=== PATIENT | male | born 1960 | race Caucasian/White ===

== ENCOUNTER 2020-01-18 08:52 | Emergency (ER) | payer OTHER, SELFPAY ==
[2020-01-18 08:53] VITALS: BP 210/109; PULSE 84; RESP 18; TEMP 36.9; O2SAT 98; BMI 31.1
[2020-01-18 08:58] VITALS: BMI 31.1
[2020-01-18 09:01] VITALS: BP 180/114; PULSE 80; RESP 13; O2SAT 98
--- NOTE | 2020-01-18 09:18 | CT_ITS ---
STUDY: CTA HEAD AND NECK WITH CONTRAST REASON FOR EXAM: Male, 60 years old. HEADACHE, POSSIBLE DISSECTION RADIATION DOSAGE (If Supplied By Facility): CTDIvol = ( 32.15 ) mGy, DLP = ( 2635.21 ) mGycm TECHNIQUE: CT angiography was performed with a multi-detector CT scanner. Data acquisition was obtained from the skull base through the vertex following intravenous administration of IV 100mL Isovue-370. MIP images were reconstructed from the axial data set. Post-processing of the angiographic images was performed, with multiplanar reformation and 3D reconstruction. Individualized dose optimization techniques were used for this CT. COMPARISON: No relevant priors. FINDINGS: There is calcified plaque formation of the right cavernous carotid artery, without a cross-sectional luminal stenosis. There is calcified plaque formation of the left cavernous carotid artery, without a cross-sectional luminal stenosis. Normal right A1 segments of the anterior cerebral artery. Normal left A1 segments of the anterior cerebral artery. Normal intact anterior communicating artery (ACOM). Normal bilateral A2 segments of the anterior cerebral arteries. Normal right M1 and M2 segments of the middle cerebral arteries, with a normal M1 bifurcation. Normal left M1 and M2 segments of the middle cerebral arteries, with a normal M1 bifurcation. Normal right posterior communicating artery (PCOM). Normal left posterior communicating artery (PCOM). Normal basilar artery with a normal basilar bifurcation. The visualized bilateral superior cerebellar (SCA) arteries are normal. Normal bilateral posterior cerebral arteries. RIGHT CAROTID ARTERIES: Normal right common carotid artery (CCA). There is mild atherosclerotic plaque formation with minimal narrowing of the right carotid bulb. Normal origin of the right internal carotid (ICA) artery without a hemodynamically significant stenosis. Normal visualized cervical portion of the right internal carotid artery. Normal origin of the right external carotid artery (ECA). LEFT CAROTID ARTERIES: Normal left common carotid artery (CCA). There is extensive atherosclerotic plaque formation of the carotid bulb. There is severe stenosis/ focal occlusion at the origin of the left internal carotid artery with a near complete occlusion. The remaining left ICA is patent however is small in size all away up to the carotid terminus. VERTEBRAL ARTERIES: There is enhancement within the bilateral vertebral arteries with a small right vertebral artery, and a dominant left vertebral artery. CT/CTA Head AND Neck W/ Contrast IMPRESSION: Severe stenosis/focal occlusion at the origin of left carotid artery and decreased size of the remaining internal carotid artery. Differential considerations include severe atherosclerotic disease with and dissection. N.B. : The above information has been verbally conveyed by Deneen Nelson MD to Dr. Whitley MD, on 01/18/2020 10:48:25 (ET). Electronically Signed: Deneen Nelson MD at 10:49 EDT Tel , Service support ,
--- NOTE | 2020-01-18 09:18 | EKG12_ITS ---
Test Reason : Blood Pressure : / mmHG Vent. Rate : 086 BPM Atrial Rate : 086 BPM P-R Int : 162 ms QRS Dur : 088 ms QT Int : 364 ms P-R-T Axes : 054 -16 160 degrees QTc Int : 435 ms Sinus rhythm with Premature supraventricular complexes Minimal voltage criteria for LVH, may be normal variant T wave abnormality, consider lateral ischemia Abnormal ECG Confirmed by EDNA SESAY, JOSH ([id number]), film editor supervisor FAITH JUNE ([id number]) on 01/29/2020 9:32:20 A M Referred By: SULLY Confirmed By:SUDARSHAN BISHOP MD
--- NOTE | 2020-01-18 09:18 | CT_ITS ---
STUDY: CTA CHEST REASON FOR EXAM: Male, 60 years old. HEADACHE, POSSIBLE DISSECTION RADIATION DOSAGE (If Supplied By Facility): CTDIvol = ( 32.15 ) mGy, DLP = ( 2635.21 ) mGycm TECHNIQUE: The examination was performed with the intravenous administration of IV 100mL Isovue-370. Post-processing of the angiographic images was performed, with multiplanar reformation and 3D reconstruction. Individualized dose optimization techniques were used for this CT. COMPARISON: None. FINDINGS: Normal enhancement of the main pulmonary artery and right and left pulmonary arteries. Normal enhancement of the bilateral peripheral pulmonary arteries. There is no demonstrated pulmonary embolism. Normal thoracic aorta and visualized great vessels. There is no demonstrated aortic dissection. Normal heart and pericardium. Normal mediastinum. Normal hilar regions. Normal visualized trachea and bronchi. The lungs are well expanded. Normal pulmonary parenchyma. Normal pleura. Normal chest wall structures. Normal osseous structures. Normal visualized upper abdomen. CT/CTA Chest W/WO Contrast IMPRESSION: Normal CTA chest examination, without a demonstrated pulmonary embolism or arterial dissection. Electronically Signed: Juan A Garza MD at 11:07 EDT Tel , Service support ,
--- NOTE | 2020-01-18 09:20 | NURSING ---
NO OLD EKGS
[2020-01-18 09:31] LABS: Absolute Neutrophil Count 5.7 X10^3/uL (2.0-7.7); Basophil# 0.06 X10^3/uL; Basophil% 0.6 % (0-1); Eosinophil# 0.54 X10^3/uL; Eosinophils% 5.7 % (0-5); Hematocrit 51.4 % (40-54); Hemoglobin 16.6 g/dL (13.0-16.5); Lymphocyte % 24.3 % (19-41); Mean Corp Hgb Conc 32.3 g/dL (32-36); Mean Corpuscular Hgb 26.7 pg (27.0-32.0); Mean Corpuscular Volume 82.6 fL (80-94); Mean Platelet Vol. 9.8 fl (6.2-12.0); Monocyte# 0.82 X10^3/uL; Monocyte% 8.7 % (0-10); NRBC Flagged by Analyzer 0 % (0-5); Neutrophil # 5.68 X10^3/uL (2.7-7.7); Neutrophil % 60.1 % (47-70); Platelet Count 285 K/mm3 (150-450); RBC Distribution Width CV 13.3 % (11.6-14.6); RBC Distribution Width SD 40.2 fl (35.1-43.9); Red Blood Count 6.22 M/mm3 (4.6-6.2); White Blood Count 9.5 K/mm3 (4.4-11.0)
[2020-01-18 09:36] LABS: Prothrombin Time (Protime)PT. 12.4 SECONDS (11.7-14.9)
[2020-01-18 09:37] LABS: Partial Thromboplast Time 26.9 Seconds (24.1-36.2)
--- NOTE | 2020-01-18 09:38 | ED.VIS.GEN ---
History of Present Illness Chief Complaint: Neuro S/Sx Informant: Patient Narrative: Patient presents the emergency department via EMS. He tells me that this morning he got up felt in his usual state of health. He drove to an [employer] get some money out well reaching felt a pinch nerve like pain in the left posterior neck. He states that he developed some blurry vision in the left eye that seem to intensify his he drove. States he had some white looking lines appear in his vision as the blurry vision intensified. He went to take an Advil and felt like it got stuck in his throat. He got to where he was going a shop with speaking with his friend. He took 2 more Advil and felt that they went down okay. Then while standing there he got globally weak in both arms and legs nauseated and lightheaded. He states he had a sit down in the chair. States both eyes developed blurriness and white and black spots. He states that while in the chair it was extremely difficult for him to move anything. He tells me the bystander did not note him to be pale or sweaty. He states that then he started to get better. However he still has pain in the back of his neck and a headache. Past Medical History - Allergies and Home Meds Allergies/Adverse Reactions: Allergies naproxen [From Anaprox] Allergy (Verified 01/18/20 08:57) [facility] Primary Care Physician: Missy Jaramillo,Out of [NON-STAFF] - Past Medical History: None Surgical History: noncontributory Smoking Status: Former smoker Drugs: None Review of Systems General: Denies: Chills, Fever, Sweats Eyes: Reports: Visual changes - bilaterally, Blurred Vision - bilaterally. Denies: Diplopia ENT: Denies: Rhinorrhea, Sore throat Cardiovascular: Denies: Chest pain, Palpitations Respiratory: Denies: Dyspnea, Cough, Dyspnea on exertion Gastrointestinal: Reports: Nausea. Denies: Abdominal pain, Vomiting, Diarrhea, Melena, Hematochezia Genitourinary: Denies: Dysuria, Hematuria, Frequency Musculoskeletal: Reports: Neck pain. Denies: Back pain, Extremity Pain Skin: Denies: Rash, Wounds Neurological: Reports: Headache, Weakness. Denies: Parasthesia, Numbness Physical Exam Vital Signs/Narrative: Vital Signs Temp Pulse Resp BP Pulse Ox 01/18/20 09:01 80 13 180/114 H 98 01/18/20 08:53 98.4 F 84 18 210/109 H 98 Inital Vital Signs reviewed: Yes General: Well nourished, Well developed, No Acute Distress Head: Normocephalic, Atraumatic Eyes: Perrl, EOMI ENT: Moist mucous membranes, No rhinorrhea Neck: Supple, Nontender Cardiovascular: Regular rate, Regular rhythm, No murmurs Respiratory: No distress, CTA bilaterally, Chest nontender Abdomen: Soft, Nontender, Nondistended, Normal bowel sounds Back: Nontender, Normal Inspection Extremities: Nontender, No edema Skin: Normal color, No rash Neurological: Alert, Oriented x3, Cranial nerves II-XII grossly intact, Normal Strength, Normal Sensation, - - NIH is 0 Psychological: Normal affect, Normal Mood Diagnostic/Tx/Re-eval Clinical Impression(s) from Imaging Studies Head/Neck CTA 01/18/20 09:18 IMPRESSION: Severe stenosis/focal occlusion at the origin of left carotid artery and decreased size of the remaining internal carotid artery. Differential considerations include severe atherosclerotic disease with and dissection. N.B. : The above information has been verbally conveyed by Deneen Nelson MD to Dr. Whitley MD, on 01/18/2020 10:48:25 (ET). Electronically Signed: Deneen Nelson MD at 10:49 EDT Tel , Service support , Laboratory Last Values WBC 9.5 K/mm3 (4.4-11.0) 01/18/20 08:38 RBC 6.22 M/mm3 (4.6-6.2) H 01/18/20 08:38 Hgb 16.6 g/dL (13.0-16.5) H 01/18/20 08:38 Hct 51.4 % (40-54) 01/18/20 08:38 MCV 82.6 fL (80-94) 01/18/20 08:38 MCH 26.7 pg (27.0-32.0) L 01/18/20 08:38 MCHC 32.3 g/dL (32-36) 01/18/20 08:38 RDW Std Deviation 40.2 fl (35.1-43.9) 01/18/20 08:38 RDW Coeff of Karey 13.3 % (11.6-14.6) 01/18/20 08:38 Plt Count 285 K/mm3 (150-450) 01/18/20 08:38 MPV 9.8 fl (6.2-12.0) 01/18/20 08:38 Immature Gran % (Auto) 0.600 % (0.0-0.9) 01/18/20 08:38 Neut % (Auto) 60.1 % (47-70) 01/18/20 08:38 Lymph % (Auto) 24.3 % (19-41) 01/18/20 08:38 Gregg % (Auto) 8.7 % (0-10) 01/18/20 08:38 Eos % (Auto) 5.7 % (0-5) H 01/18/20 08:38 Baso % (Auto) 0.6 % (0-1) 01/18/20 08:38 Absolute Neuts (auto) 5.7 X10^3/uL (2.0-7.7) 01/18/20 08:38 Absolute Lymphs (auto) 2.30 X10^3/uL (0.83-4.51) 01/18/20 08:38 Nucleated RBC % 0 % (0-5) 01/18/20 08:38 PT 12.4 SECONDS (11.7-14.9) 01/18/20 08:38 INR 1.0 01/18/20 08:38 APTT 26.9 Seconds (24.1-36.2) 01/18/20 08:38 Sodium 137 mmol/L (136-145) 01/18/20 08:38 Potassium 4.1 mmol/L (3.5-5.1) 01/18/20 08:38 Chloride 106 mmol/L (98-107) 01/18/20 08:38 Carbon Dioxide 24.0 mmol/L (21.0-32.0) 01/18/20 08:38 Anion Gap 7 (5-15) 01/18/20 08:38 BUN 17 mg/dL (7-18) 01/18/20 08:38 Creatinine 1.01 mg/dL (0.70-1.30) 01/18/20 08:38 Estim Creat Clear Calc 78.75 ml/min 01/18/20 08:38 Est GFR (MDRD) Af Amer 97 mL/min (>60) 01/18/20 08:38 Est GFR (MDRD) Non-Af 80 mL/min (>60) 01/18/20 08:38 BUN/Creatinine Ratio 16.8 RATIO (-20) 01/18/20 08:38 Glucose 130 mg/dL (74-106) H 01/18/20 08:38 Calcium 9.0 mg/dL (8.5-10.1) 01/18/20 08:38 Total Bilirubin 0.40 mg/dL (0.20-1.00) 01/18/20 08:38 AST 15 U/L (15-37) 01/18/20 08:38 ALT 32 U/L (16-61) 01/18/20 08:38 Alkaline Phosphatase 76 U/L (45-117) 01/18/20 08:38 Troponin I < 0.015 ng/mL (<0.045) 01/18/20 08:38 Total Protein 8.2 g/dL (6.4-8.2) 01/18/20 08:38 Albumin 3.9 g/dL (3.2-5.0) 01/18/20 08:38 Globulin 4.3 g/dL (2.2-4.2) H 01/18/20 08:38 Albumin/Globulin Ratio 0.9 RATIO (0.9-2.4) 01/18/20 08:38 - EKG Initial EKG Interpretation: Sinus Rhythm - EKG demonstrates a normal sinus rhythm at a rate of 86. I do not see concerning features of ACS. There is noted PAC. - Medical Decision Making Presented with no acute neurologic deficit at the time of evaluation and his NIH was 0. Therefore stroke team was not called. Patient placed on the monitor. He is had no events. EKG is sinus with PACs. Out of concern for dissection we performed not only initial head CT but also CTA of the head neck and aorta. Noted severe stenosis/focal occlusion at the origin of the left carotid artery and decreased size of the remaining internal carotid artery. I spoke directly with the neuroradiologist and then spoke immediately to [facility]. Patient and the family were updated. At this point our plan is to perform an emergent transfer to [facility] for further care. Images have been sent electronically for their evaluation prior to his arrival. I spoke with Dr. Vivar directly from [facility]. He will not be a stroke alert at this time given his exam and NIH score 0 At the time of this dictation his current blood pressure is 163/91. - Critical Care Time Critical care time (excluding procedures): 30-74 minutes, Discussing w/Patient &/or Family/[employer], Discussing w/Consultants, Arranging Admission or Transfer, Performing Direct Patient Care at Bedside ED Disposition - Plan for ED Patient: Diagnosis: Occlusion of left internal carotid artery Referrals: [facility] Doctor,Out of [NON-STAFF] -
[2020-01-18 09:45] LABS: ALB/GLOB Ratio 0.9 RATIO (0.9-2.4); AST(SGOT) 15 U/L (15-37); Alanine Aminotransfer ALT/SGPT 32 U/L (16-61); Albumin, Serum 3.9 g/dL (3.2-5.0); Alkaline Phosphatase 76 U/L (45-117); Anion Gap 7 (5-15); BUN 17 mg/dL (7-18); BUN/Creat Ratio 16.8 RATIO (10-20); Chloride 106 mmol/L (98-107); Creatinine, Serum 1.01 mg/dL (0.70-1.30); EST Glomerular Filtration Rate 80 mL/min (>60); Est Glom Filt Rate - Afr Amer 97 mL/min (>60); Estimated Creatinine Clearance 78.75 ml/min; Globulin 4.3 g/dL (2.2-4.2); Glucose 130 mg/dL (74-106); Potassium 4.1 mmol/L (3.5-5.1); Protein, Total 8.2 g/dL (6.4-8.2); Sodium Level 137 mmol/L (136-145)
[2020-01-18 10:07] VITALS: BP 170/100; PULSE 81; RESP 15; O2SAT 97
--- NOTE | 2020-01-18 10:51 | NURSING ---
CALLED [facility] FOR NEUROLOGY FAXED FACESHEET TO [facility] TALKING TO TRANSFER LINE
[2020-01-18 11:31] VITALS: BP 166/107; PULSE 83; RESP 12; RESP 17; TEMP 36.9; O2SAT 97
== END 2020-01-18 12:17 | disposition short-term general hospital (02) ==
LOC: ED 09:26
PROVIDERS: Emergency Provider Emergency Medicine
DX: I65.22 Occlusion and stenosis of left carotid artery (principal); Z87.891 Personal history of nicotine dependence
CPT/HCPCS: 70496; 70498; 71275; 80053; 84484; 85025; 85610; 85730; 93005; 99285; Q9967